=== PATIENT | male | born 1955 | race Caucasian/White ===

== ENCOUNTER → 2016-08-14 | Outpatient (CLI) | payer OTHER ==
[~2016-08-14] MED LIST: COMMODE 3-IN-11 MIS; LORTA5 PO; OMEP20TA39 PO; RANI150T PO; WALKER WHEELS/F1 MIS; Z.0.COMMODE-3:1; Z.0.CPM; Z.0.WALKERFRONT; ZANT150T2 PO; ZOCO40TA PO
--- NOTE | 2016-08-14 08:46 | RADRPT ---
EXAM DATE/TIME: 08/14/2016 08:16 [facility] COMPARISON: No previous studies available for comparison. INDICATIONS : Evaluate for pneumonia, pneumothorax, or communicable disease. Pre op hip surgery. MEDICAL HISTORY : None. SURGICAL HISTORY : None. ENCOUNTER: Initial ACUITY: 1 day PAIN SCORE: 0/10 LOCATION: Bilateral chest FINDINGS: PA and lateral views of the chest demonstrate the lungs to be symmetrically aerated without evidence of mass, infiltrate or effusion. The cardiomediastinal contours are unremarkable. Osseous structure s are intact. Prominent degenerative changes right a.c. joint. CONCLUSION: No acute disease. Joe Heaton MD on August 14, 2016 at 8:44 Board Certified Radiologist. This report was verified electronically.
== END ==
LOC: HRAD 07:45
PROVIDERS: ATTEND Orthopaedic Surgery
DX: Z01.818 Encounter for other preprocedural examination (principal)
CPT/HCPCS: 71020

== ENCOUNTER → 2016-08-26 | Outpatient (CLI) | payer OTHER ==
--- NOTE | 2016-08-26 12:40 | RADRPT ---
EXAM DATE/TIME: 08/26/2016 10:12 [facility] COMPARISON: No previous studies available for comparison. INDICATIONS : Left foot and akle pain and swelling post fall 4 months ago. MEDICAL HISTORY : None. SURGICAL HISTORY : None. ENCOUNTER: Initial ACUITY: 4 - 6 months PAIN SCORE: 8/10 LOCATION: Left foot and ankle FINDINGS: 3 views left foot. Small osteophytes of the third toe proximal interphalangeal joint. Mild osteoarthr itic findings of the great toe MTP joint. Bone alignment within normal limits. No evidence of fractu re. CONCLUSION: No evidence of fracture. Osteoarthritic findings of the third toe PIP joint and great toe MTP joint.. Laz Whitehead MD on August 26, 2016 at 12:35 Board Certified Radiologist. This report was verified electronically.
--- NOTE | 2016-08-26 12:42 | RADRPT ---
EXAM DATE/TIME: 08/26/2016 10:14 [facility] COMPARISON: No previous studies available for comparison. INDICATIONS : Left foot and ankle pain and swelling; post fall 4 months ago. MEDICAL HISTORY : None. SURGICAL HISTORY : None. ENCOUNTER: Initial ACUITY: 4 - 6 months PAIN SCORE: 8/10 LOCATION: Left foot and ankle FINDINGS: 4 views of the left ankle. Ankle mortise intact. Bone alignment within normal limits. No evidence of fracture. CONCLUSION: No evidence of fracture. Laz Whitehead MD on August 26, 2016 at 12:39 Board Certified Radiologist. This report was verified electronically.
== END ==
LOC: HRAD 09:54
PROVIDERS: ATTEND Family Medicine
DX: M25.572 Pain in left ankle and joints of left foot (principal); M25.472 Effusion, left ankle
CPT/HCPCS: 73610; 73630

== ENCOUNTER 2016-08-27 11:15 | Inpatient (IN) | payer OTHER ==
[~2016-08-27] VITALS: Ht 193 cm; Wt 135.2 kg
[2016-08-28] MEDS ORDERED: VANCOMYCIN 1000 MG/NS 250 ML (for <70 kg) IV SCH ×2 (05:30)
[2016-08-28] MEDS ORDERED: ceFAZolin 2 GM PREMIX 50 ML IV SCH (05:30)
[2016-08-28] MEDS ORDERED: POVIDONE IODINE 7.5% SCRUB 118 ML BOTTLE TOPICAL SCH (05:30)
[2016-08-28] MEDS ORDERED: CHLORHEXIDINE GLUCONATE 2 % 1 PACK (2 CLOTHS) TOPICAL PRN (05:45)
[2016-08-28] MEDS ORDERED: METOPROLOL TARTRATE 25 MG TAB PO PRN (05:45)
[2016-08-28] MEDS ORDERED: POVIDONE IODINE 5% (ANTISEPSIS KIT) 4 APPLICATIONS EACH NARE PRN (05:45)
[2016-08-28] MEDS ORDERED: LACTATED RINGER'S 1000 ML IV PRN (05:45)
[2016-08-28] MEDS ORDERED: INSULIN HUMAN REGULAR 1,000 UNITS/10 ML VIAL SQ PRN (05:45)
[2016-08-28] MEDS ORDERED: SODIUM CHLORID 0.9% 500 ML IV PRN (05:45)
[2016-08-28] MEDS ORDERED: RANI150T PO (05:46)
[2016-08-28 05:47] VITALS: BP 155/84; PULSE 68; RESP 20; TEMP 98.6; O2SAT 98
[2016-08-28] MEDS ORDERED: GENTAMICIN SULFATE 80 MG/2 ML VIAL ONE (06:10)
[2016-08-28] MEDS ORDERED: MIDAZOLAM HCL 2 MG/2 ML VIAL ONE (06:36)
[2016-08-28] MEDS ORDERED: FAMOTIDINE 20 MG/2 ML VIAL ONE (06:36)
[2016-08-28] MEDS ORDERED: fentaNYL CITRATE 250 MCG/5 ML AMP ONE ×2 (06:37→09:31)
[2016-08-28] MEDS ORDERED: DEXAMETHASONE SOD PHOS 4 MG/ML VIAL ONE (06:37)
--- NOTE | 2016-08-28 06:54 | HHI.DCPOC ---
Discharge Care Plan Diagnosis: (1) Status post total hip replacement, left (2) Osteoarthritis of left hip Your Health Problems Are: Difficulty with ADL Goals to Promote Your Health * To prevent worsening of your condition and complications * To maintain your health at the optimal level Directions to Meet Your Goals Take your medications as prescribed Follow your dietary instruction Follow activity as directed Keep your appointments as scheduled Take your immunizations and boosters as scheduled If your symptoms worsen call your PCP, if no PCP go to Urgent Care Center or Emergency Room Smoking is Dangerous to Your Health. Avoid second hand smoke Call the 24-hour hour crisis hotline for domestic abuse at Mervin Ruggiero Aug 28, 2016 06:54
--- NOTE | 2016-08-28 06:55 | HHI.FF ---
Face to Face Verification Diagnosis: (1) Status post total hip replacement, left (2) Osteoarthritis of left hip Physical Therapy Gait training, Transfer training, bed to chair Hip: Total hip Left LE Weight Bearing: WB as tolerated Left LE Range of Motion: Active ROM Nursing Nursing: Jessica teaching, Dressing changes Dressing Changes: Daily dressing change I have seen patient Darnell Carlos on 08/28/16. My clinical findings support the need for the requested home health care services because: Limited ability to care for self High risk of falls I certify that my clinical findings support that this patient is homebound because: Post-op weakness Unsteady gait/balance Mervin Ruggiero Aug 28, 2016 06:54
[2016-08-28] MEDS ORDERED: COMMODE 3-IN-11 MIS (06:56)
[2016-08-28] MEDS ORDERED: WALKER WHEELS/F1 MIS (06:56)
[2016-08-28] MEDS ORDERED: DEXAMETHASONE SOD PHOS 20 MG/5 ML VIAL IV SCH (07:00)
[2016-08-28] MEDS ORDERED: SODIUM CHLORIDE 0.9% IV SCH ×2 (07:00→09:00)
[2016-08-28] MEDS ORDERED: TRANEXAMIC ACID IV SCH ×2 (07:00→09:00)
[2016-08-28] MEDS ORDERED: EXPAREL PERI-ARTICULAR INJECTION (TOTAL VOL. 60 ML) P-ARTICULR SCH ×2 (07:00)
[2016-08-28] MEDS: SODIUM CHLOR 0.9% 1000 ML INJ 1,000 ML IV SCH ×2 (08:54→18:04)
[2016-08-28] MEDS ORDERED: MAGNESIUM HYDROXIDE SUSP 30 ML CUP PO PRN (09:00)
[2016-08-28] MEDS ORDERED: ZOLPIDEM TARTRATE 5 MG TAB PO PRN (09:00)
[2016-08-28] MEDS ORDERED: BISACODYL 10 MG SUPP RECTAL PRN (09:00)
[2016-08-28] MEDS ORDERED: diphenhydrAMINE HCL 50 MG/ML VIAL IV PRN (09:00)
[2016-08-28] MEDS ORDERED: NALOXONE HCL 0.4 MG/ML AMP IV PRN (09:00)
[2016-08-28] MEDS: SODIUM CHLORIDE 0.9% FLUSH 5 ML FLUSH IVF SCH ×2 (09:00→20:13)
[2016-08-28] MEDS ORDERED: SODIUM CHLORIDE 0.9% FLUSH 5 ML FLUSH IVF PRN (09:00)
[2016-08-28] MEDS ORDERED: MORPHINE SULFATE 4 MG/ML INJ IV PUSH PRN (09:00)
[2016-08-28] MEDS ORDERED: Post-op Orders (for Pharmacy) MISC XX ONE (09:00)
[2016-08-28] MEDS ORDERED: ALUMINUM/MAGNESIUM/SIMETH 30 ML CUP PO PRN (09:00)
[2016-08-28] MEDS ORDERED: ONDANSETRON HCL 4 MG/2 ML VIAL IVP PRN (09:00)
--- NOTE | 2016-08-28 09:01 | PD.OP ---
cc: Sang Berg MD Operative Report Date of Surgery: Aug 28, 2016 Preoperative Diagnosis: Left hip severe osteoarthritis Postoperative Diagnosis: Same Procedure: Left total hip arthroplasty Anesthesia: Gen. Surgeon: Sang Berg Cellular Equipment Installer(s): GLENNY Foster The surgical procedure was assisted by my Advanced Registered Nurse Practitioner. My [employer] presence was necessary throughout this case for the manipulation and positioning of the surgical extremity. My [employer] was assisting me throughout the duration of this procedure. The skill set of an Advance Registered Nurse Practitioner was medically necessary to complete this procedure. During the surgical case, the surgical coordinator was working at the back table and the Advance Registered Nurse Practitioner was directly assisting me. Operation and Findings: IMPLANT DESCRIPTION: 1. [place] Gription Cup, acetabular size 58. 2. [place] AltrX polyethylene, neutral. 4. [place] femoral stem size 16, no collar, high offset. 5. Femoral head/neck ceramic, 36, +12. ESTIMATED BLOOD LOSS: 400 cc. JUSTIFICATION FOR PROCEDURE: The patient has end-stage osteoarthritis to the hip. There is an attached conservative measures pathway form in the chart that describes the nonoperative measures that were undertaken prior to consideration of surgical management. The patient understood the risks and benefits of surgical management. See my office notes for further details. PROCEDURE: The patient was brought back to the operative theatre. Adequate anesthesia was obtained. The patient received intravenous vancomycin and Ancef. The patient was carefully placed on the operative table. The lower extremity was prepped and draped in the usual sterile fashion. Fluoroscopic images were obtained. We made a standard anterior incision over the hip. We dissected through the TFL fascia, exposing the anterior capsule. Arthrotomy was performed in a T-shaped fashion. The capsule was tagged with a #2 FiberWire. End-stage arthritis was identified. Osteotomy was performed through the femoral neck exposing the acetabulum. Remnants of the labrum were resected and osteophytes were removed. We sequentially reamed the acetabulum. We trialed the hip and placed the final cup into position. This was done under fluoroscopic guidance to obtain the appropriate inclination and anteversion. A manhole cover was placed into the acetabular component. We then placed the final polyethylene into position and confirmed that it was well seated. Capsular attachments on the calcar and the inner aspect of the greater trochanter were resected. On the proximal aspect of the femur we used a rongeur , box osteotome, canal finder, sequential broaches and lateralizing rasp. We calcar planed the proximal femur. Then thoroughly irrigated the wound. We trialed the hip with the appropriate size stem. We placed the final stem in to position and trialed again. The hip was stable while it was externally rotated 70 degrees when the leg was lowered to the floor. We trialed several different neck lengths. Ultimately, the +12 gave the best stability. The +8.5 was unstable with the hip externally rotated and brought down to 30. Therefore, we went with the +12. This did seem to increase the leg length on the left side compared to the right side, per intraoperative fluoroscopy. However, the right side does have severe osteoarthritis with shortening. The tension with the +12 failed very appropriate and anatomic. The final head was applied, and final fluoroscopic images were obtained. The wound was thoroughly irrigated again. Interarticular injection of liposomal bupivacaine was given. The capsule was closed with #2 FiberWire and #1 Vicryl. The deep fascia was closed with a #2 Stratafix, followed by 2-0 Vicryl in the skin and merced. Postop plan is to weight-bear as tolerated. DVT prophylaxis will be performed with SCDs, DEBORA nolasco, early mobilization, and Lovenox followed by aspirin. Sang Berg MD Aug 28, 2016 09:01
[2016-08-28] MEDS ORDERED: DO NOT ADM ANY ANTICOAGULANT DRUGS PRN (09:30)
--- NOTE | 2016-08-28 09:39 | RADRPT ---
EXAM DATE/TIME: 08/28/2016 07:27 [facility] COMPARISON: FLUOROSCOPY PORTABLE UP TO 1HR, August 28, 2016, 0:00. INDICATIONS : Left total hip replacement. MEDICAL HISTORY : None. SURGICAL HISTORY : None. ENCOUNTER: Initial ACUITY: 1 day PAIN SCORE: Non-responsive. LOCATION: Left Hip FINDINGS: The patient is post left hip arthroplasty. Orthopedic hardware appears in excellent position. No comp lication is identified. CONCLUSION: 1. Orthopedic hardware in excellent position. Mervin Barnett MD on August 28, 2016 at 9:37 Board Certified Radiologist. This report was verified electronically.
[2016-08-28] MEDS ORDERED: *ONDANSETRON 4 MG VIAL PERIprocedural Use ONLY ONE (10:16)
--- NOTE | 2016-08-28 10:22 | RADRPT ---
EXAM DATE/TIME: 08/28/2016 09:37 [facility] COMPARISON: No previous studies available for comparison. INDICATIONS : Post op left hip surgery. MEDICAL HISTORY : None. SURGICAL HISTORY : None. ENCOUNTER: Initial ACUITY: 1 day PAIN SCORE: 5/10 LOCATION: Left hip and pelvis FINDINGS: The patient is status post a total hip arthroplasty with a bipolar prosthesis. Prosthesis is well-sea stan. Alignment is anatomic. A fracture is not appreciated. CONCLUSION: Anatomic alignment. Paul Barnett MD FACR Board Certified Radiologist. This report was verified electronically.
[2016-08-28] MEDS: ACETAMINOPHEN/HYDROcodone 325 MG/5 MG TAB PO PRN ×4 (11:37→23:39)
[2016-08-28 12:00] VITALS: BP 158/89; PULSE 76; RESP 18; TEMP 95.5; O2SAT 93
[2016-08-28] MEDS ORDERED: PROPOFOL 200 MG/20 ML AMP IV ONE (12:00)
[2016-08-28] MEDS ORDERED: NEOSTIGMINE 3 MG/3 ML SYR IV ONE (12:00)
[2016-08-28] MEDS ORDERED: LACTATED RINGER'S 1000 ML INJ 3,000 ML IV ONE (12:00)
[2016-08-28] MEDS ORDERED: ONDANSETRON HCL 4 MG/2 ML VIAL IV PUSH ONE (12:00)
[2016-08-28 12:07] VITALS: O2SAT 94
--- NOTE | 2016-08-28 15:44 | MB ---
cc: JANELLE ANTHONY MD DATE OF CONSULTATION 08/28/16 Consult note for medical management. DATE OF 1955 DATE OF ADMISSION 08/28/2016 REASON FOR CONSULTATION Medical management. HISTORY OF PRESENT ILLNESS This is a pleasant 61-year-old white male who had been in his usual state of health except for the osteoarthritis and the pain in his left hip. The patient received outpatient therapy and decided to have a left total hip arthroplasty. The patient is currently in the private room, postop day one. He is working with physical therapy and is currently sitting on the side of the bed. The patient is alert, oriented and cooperative. PAST MEDICAL HISTORY Medical history includes osteoarthritis with ___ shoulder pain and shoulder injury; old fracture to the clavicle. Hyperlipidemia, arthritis, right middle finger injury on his right hand. GERD. The patient is not a diabetic. PAST SURGICAL HISTORY T and A. Left and right knee surgery which included cartilage removal and left total knee. ALLERGIES No known. MEDICATIONS Medications reconciled: 1. Zantac 150 daily. SOCIAL HISTORY The patient is single, lives alone. Denies any tobacco, alcohol or illicit drugs. States he quit all three 14 years ago. REVIEW OF SYSTEMS A 10 point review was obtained, positives noted which includes his bowel regimen, his pain control. He is status post left total hip replacement. He is afebrile. Generalized debility otherwise unremarkable system. PHYSICAL EXAMINATION VITAL SIGNS: Temperature is 95.5, pulse 76, respirations 18, blood pressure 158/59, systolic pressure has run in the 150s with a high of 161 since admission. O2 sat 94, currently on room air. He has been on nasal cannula at 3 liters with O2 sat running 96. GENERAL: Well-nourished, mildly obese white male, looks to be his stated age. He is alert, oriented and a good historian. HEENT: Atraumatic, normocephalic. KELLY. Neck is supple. No scleral icterus. CARDIOVASCULAR: S1-S2, regular rate and rhythm. No murmurs, rubs gallops. LUNGS: Sounds are essentially clear anteriorly and posteriorly with no wheezes, rales or rhonchi. ABDOMEN: Round, soft, nontender, nondistended, soft. Bowel sounds. MUSCULOSKELETAL: Moves his extremities with purpose. He does have some mild guarding to the left hip. NEUROLOGICALLY: He is alert, oriented ,good historian. SKIN: [place], warm and dry. DIAGNOSTIC DATA No diagnostic date noted in the computer. ASSESSMENT/PLAN Severe osteoarthritis status post left total hip replacement, hyperlipidemia, left shoulder pain, acute on chronic, arthritis, GERD. PLAN Our plan is to monitor any of his medical management. Will recheck his labs in the morning. Pain management and his postop care will be per Dr. Berg, orthopedics. The patient can use a cold pack on his wound p.r.n. He will be working with physical therapy. Will monitor his nutritional status, his bowel regimen and any other needs for his medical management. The patient can be out of bed with assistance. SCDs bilateral. Lovenox for DVT prophylaxis. Pepcid for his GERD. Thank you very much for this consultation. Dictated by: GLENNY Jain MD CORIN June/ROMULO /2:57 PM /3:21 PM
--- NOTE | 2016-08-28 15:56 | EKG ---
Date Performed: 08/28/2016 Time Performed: 06:17:20 PTAGE: 61 years EKG: Sinus rhythm POSSIBLE LATERAL MYOCARDIAL INFARCTION , OF INDETERMINATE AGE ABNORMAL ECG PREVIOUS TRACING : 06/01/2015 14.42 Compared to prior tracing no significant change DOCTOR: Rm Ott Interpretating Date/Time 08/28/2016 15:54:24
[2016-08-28 16:00] VITALS: BP 151/85; PULSE 63; RESP 18; TEMP 96.3; O2SAT 94
[2016-08-28 20:00] VITALS: BP 157/82; PULSE 80; RESP 20; TEMP 96.1; O2SAT 99
[2016-08-28] MEDS: FAMOTIDINE 20 MG TAB PO SCH (20:13)
[2016-08-28 20:21] VITALS: O2SAT 95
[2016-08-29] VITALS: BP 140/70; PULSE 78; RESP 24; TEMP 98.1; O2SAT 98
[2016-08-29] MEDS: ACETAMINOPHEN/HYDROcodone 325 MG/5 MG TAB PO PRN ×4 (03:39→16:08)
[2016-08-29 04:00] VITALS: BP 147/72; PULSE 81; RESP 20; TEMP 97.1; O2SAT 98
[2016-08-29] MEDS: SODIUM CHLOR 0.9% 1000 ML INJ 1,000 ML IV SCH ×2 (04:43→12:06)
[2016-08-29 06:17] LABS: HEMATOCRIT 37.5 % (39.0-51.0); MEAN CELL VOLUME 92.2 FL (80.0-100.0); MEAN CORPUSCULAR HEMOGLOBIN 30.8 PG (27.0-34.0); MEAN CORPUSCULAR HGB CONC 33.4 % (32.0-36.0); PLATELET COUNT 147 TH/MM3 (150-450); RED BLOOD COUNT 4.07 MIL/MM3 (4.50-5.90); REVIEW FLAG FINAL; WHITE BLOOD COUNT 10.1 TH/MM3 (4.0-11.0)
[2016-08-29 06:52] LABS: BICARBONATE 23.9 MEQ/L (21.0-32.0)
[2016-08-29 06:55] LABS: POTASSIUM 4.3 MEQ/L (3.5-5.1)
[2016-08-29] MEDS ORDERED: DEXAMETHASONE SOD PHOS 20 MG/5 ML VIAL IV ONE (07:45)
[2016-08-29 08:00] VITALS: BP 143/78; PULSE 75; RESP 18; TEMP 96.6; O2SAT 98
[2016-08-29] MEDS ORDERED: ENOXAPARIN SODIUM 40 MG/0.4 ML SYRINGE SQ SCH (08:00)
[2016-08-29] MEDS: FAMOTIDINE 20 MG TAB PO SCH (08:03)
[2016-08-29] MEDS: SODIUM CHLORIDE 0.9% FLUSH 5 ML FLUSH IVF SCH (08:05)
--- NOTE | 2016-08-29 11:36 | HHI.PR ---
Subjective Remarks Resting in bed Alert oriented Afebrile Up in chair and able to ambulate Objective Objective Results - Vital Signs Date Time Temp Pulse Resp B/P Pulse Ox O2 Delivery O2 Flow Rate FiO2 08/29/16 08:00 96.6 75 18 143/78 98 08/29/16 07:55 Room Air 08/29/16 04:00 97.1 81 20 147/72 98 08/29/16 00:00 98.1 78 24 140/70 98 08/28/16 20:21 95 21 08/28/16 20:00 96.1 80 20 157/82 99 08/28/16 20:00 99 Room Air 08/28/16 16:00 96.3 63 18 151/85 94 08/28/16 12:07 94 21 08/28/16 12:00 95.5 76 18 158/89 93 I/O 08/28/16 08/28/16 08/28/16 08/29/16 08/29/16 08/29/16 07:00 15:00 23:00 07:00 15:00 23:00 Intake Total 3454 ml 1257 ml 1008 ml Output Total 500 ml 650 ml Balance 2954 ml 607 ml 1008 ml Intake Oral 780 ml 240 ml IV Total 954 ml 477 ml 768 ml Other 2500 ml Output Urine Total 650 ml Estimated Blood Loss 500 ml # Voids 3 1 # Bowel Movements 0 0 Result Diagram: 08/29/16 0550 08/29/16 0550 ROS General: Fatigue (I'll), Weakness, Other (10 point ROS done, positives noted) GI: BM (on December bowel regimen) Physical Exam Physical Exam PHYSICAL EXAMINATION GENERAL: This is a mildly obese male who appears to be in no acute distress. He is alert and awake, talkative HEAD: Normocephalic, atraumatic OROPHARYNGEAL: Oropharynx clear NECK: Supple. Trachea midline without deviation. CARDIAC: Regular rhythm, regular rate, S1 and S2 are heard. LUNGS: Clear to auscultation bilaterally. No wheezes or rhonchi, volumes adequate ABDOMEN: Soft, nontender, round, bowel sounds present, no nausea vomiting EXTREMITIES: Left hip surgical incision and dressing clean dry and intact. No edema. Pulses present NEUROLOGICAL: Patient mood and affect appropriate. No focal deficit SKIN:Warm and moist Objective Remarks I'm feeling fairly good. Hope to go home soon A/P Assessment and Plan ASSESSMENT/PLAN Severe osteoarthritis status post left total hip replacement, hyperlipidemia, left shoulder pain, acute on chronic, Hyperglycemia mild Anemia mild GERD. Plan: Vital signs reviewed, normal trends for now afebrile Labs reviewed, hemoglobin 12.5 stable, she is status post total left hip arthroplasty Mild hyperglycemia blood sugar 137, patient is not a known diabetic but encouraged to monitor and recheck with his PCP after discharge Acute on chronic pain management controlled with medications Severe osteoarthritis patient is status post left total hip arthroplasty Pain management per orthopedic team Postop care per Ortho, encouraged activity, physical therapy, up in chair Discharge planning in process, soon, day or 2 SCDs bilateral. Lovenox for DVT prophylaxis. PUD prophylaxis, Lashell Romero Aug 29, 2016 11:36
--- NOTE | 2016-08-29 11:47 | PD.ORT.PN ---
Subjective Post Op Day #: 1 Subjective Remarks The patient is resting comfortably in bed with mild to moderate left hip pain. Patient able to ambulate the full length of the arriola on the floor he is on. Patient is voiding. Objective Vitals Vital Signs Date Time Temp Pulse Resp B/P Pulse Ox O2 Delivery O2 Flow Rate FiO2 08/29/16 08:00 96.6 75 18 143/78 98 08/29/16 07:55 Room Air 08/29/16 04:00 97.1 81 20 147/72 98 08/29/16 00:00 98.1 78 24 140/70 98 08/28/16 20:21 95 21 08/28/16 20:00 96.1 80 20 157/82 99 08/28/16 20:00 99 Room Air 08/28/16 16:00 96.3 63 18 151/85 94 08/28/16 12:07 94 21 08/28/16 12:00 95.5 76 18 158/89 93 I/O 08/28/16 08/28/16 08/28/16 08/29/16 08/29/16 08/29/16 07:00 15:00 23:00 07:00 15:00 23:00 Intake Total 3454 ml 1257 ml 1008 ml Output Total 500 ml 650 ml Balance 2954 ml 607 ml 1008 ml Intake Oral 780 ml 240 ml IV Total 954 ml 477 ml 768 ml Other 2500 ml Output Urine Total 650 ml Estimated Blood Loss 500 ml # Voids 3 1 # Bowel Movements 0 0 Result Diagram: 08/29/16 0550 08/29/16 0550 Procedures Left CAMERON Objective Remarks Dressings changed with scant serosanguineous drainage. Incision is well approximated with surgical clips intact. No redness or s/s of infection. EHL/ TA/G intact. 2+ pedal pulse. Calf is soft and nontender. Minimal swelling. + SILT. Assessment & Plan Ortho Post Op Day #: 1 Problem List: Assessment and Plan POD #1: Left CAMERON 1. WBAT LLE 2. Lovenox for DVT prophylaxis 3. Ice to the left hip PRN 4. Stable for discharge home with home health today. Mervin Ruggiero Aug 29, 2016 11:47
[2016-08-29 12:00] VITALS: BP 145/73; PULSE 87; RESP 18; TEMP 98.7; O2SAT 96
[2016-08-29 12:12] VITALS: O2SAT 98
[2016-08-29] MEDS ORDERED: MULTIVITAMINS/MINERALS THERAPEUTIC TAB PO SCH (21:00)
[2016-08-29] MEDS ORDERED: DOCUSATE SODIUM 100 MG CAP PO SCH (21:00)
--- NOTE | 2016-09-02 22:18 | HHI.DS ---
Discharge Summary Admission Date Aug 28, 2016 at 05:08 Discharge Date: Aug 29, 2016 Admitting Diagnosis OA of left hip Status post total hip replacement, left Diagnosis: (1) Status post total hip replacement, left Diagnosis: Principal (2) Osteoarthritis of left hip Diagnosis: Principal Procedures Left CAMERON Brief History This is a 61 year old male patient with severe OA of the left hip CBC/BMP: 08/29/16 0550 08/29/16 0550 PE at Discharge Dressings changed with scant serosanguineous drainage. Incision is well approximated with surgical clips intact. No redness or s/s of infection. EHL/ TA/G intact. 2+ pedal pulse. Calf is soft and nontender. Minimal swelling. + SILT. Hospital Course The patient was admitted to the hospital for severe OA of the left hip to have a left CAMERON. The patient tolerated the procedure well with no complications. The patient is WBAT. The patient was placed on Lovenox followed by ASA post op for DVT prophylaxis. The patient is on a regular diet. The patient will f/u with Dr. Berg in 1-2 weeks. The patient is discharged to home health. Pt Condition on Discharge: Stable Discharge Disposition: Disch w/ Home Health Serv Discharge Instructions Diet Instructions: As Tolerated, No Restrictions Activities You Can Perform: Weight Bearing as Jose Activities to Avoid: Strenuous Activity Follow up Referrals: Orthopedics with Sang Berg MD New Medications: Commode 3-in-1 (Commode 3-in-1) 1 Mis Mis 1 EA .ROUTE DIRECTED #1 Ref 0 EA Walker with Front Wheels (Walker with Front Wheels) 1 Mis Mis 1 EA .ROUTE DIRECTED #1 Ref 0 EA Continued Medications: Ranitidine (Ranitidine) 150 Mg Tab 150 MG PO DAILY Heartburn Management Ref 0 TAB Mervin Ruggiero Sep 02, 2016 22:18
== END 2016-08-29 16:24 | disposition home or self-care (01) | DRG 470 ==
LOC: HSDI 08-28 05:08 → N06A 08-28 10:48
PROVIDERS: ADMIT Orthopaedic Surgery; ATTEND Orthopaedic Surgery
PROC: 0SRB04A Replacement of Left Hip Joint with Ceramic on Polyethylene Synthetic Substitute, Uncemented, Open Approach (ICD-10-PCS; principal; 2016-08-28 06:55)
DX: M16.12 Unilateral primary osteoarthritis, left hip (principal); E66.9 Obesity, unspecified; Z68.36 Body mass index [BMI] 36.0-36.9, adult; E78.5 Hyperlipidemia, unspecified; K21.9 Gastro-esophageal reflux disease without esophagitis; G89.29 Other chronic pain; M25.512 Pain in left shoulder; Z87.891 Personal history of nicotine dependence; R73.9 Hyperglycemia, unspecified
CPT/HCPCS: 73501; 73502; 73610; 73630; 76000; 80048; 85027; 86850; 86900; 86901; 93005; 93971; 94150; 99284; C1776; C9290; J0690; J1100; J1580; J1650; J2250; J2405; J2710; J3010; J3370; J7030; J7050; J7120

== ENCOUNTER 2016-08-27 11:21 | Emergency (ER) | payer OTHER ==
[~2016-08-27] VITALS: Ht 193 cm; Wt 130.0 kg
[~2016-08-27 11:21] MED LIST changes: -COMMODE 3-IN-11 MIS; -RANI150T PO; -WALKER WHEELS/F1 MIS
[2016-08-27 11:23] VITALS: BP 136/73; PULSE 67; RESP 15; TEMP 98; O2SAT 99
--- NOTE | 2016-08-27 12:09 | PD ---
HPI Chief Complaint: Edema Time Seen by Provider: 11:31 Travel History International Travel<30 days: No Contact w/Intl Traveler<30days: No Traveled to known affect area: No History of Present Illness HPI 7-year-old man referred from Dr. Berg's office for evaluation of left leg pain for rule out DVT. He is a order with him for an ultrasound. Reportedly his had some swelling over the past several days mostly in the left ankle, and pain for the past several days as well. He is due to get his hip replacement bedside tomorrow. He was sent by Dr. Berg to rule out DVT. No history DVT. No other complaints. States he had an x-ray done yesterday. History Past Medical History Medical History: Denies Significant Hx Social History Alcohol Use: Yes Tobacco Use: Yes Allergies-Medications (Allergen,Severity, Reaction): Coded Allergies: No Known Allergies (Unverified , 08/27/16) Reported Meds & Prescriptions Reported Meds & Active Scripts Active Review of Systems Except as stated in HPI: all other systems reviewed are Neg Physical Exam Narrative GENERAL: Well-appearing 7-year-old man, no acute distress. SKIN: Warm and dry. CARDIOVASCULAR: Warm and well perfused. RESPIRATORY: Normal rate and effort. MUSCULOSKELETAL: Minimal swelling around the left ankle. Good pulses. Warm and well perfused. No calf tenderness or calf pain. NEUROLOGICAL: Awake and alert. No gross deficits. Data Data Last Documented VS Vital Signs Date Time Temp Pulse Resp B/P Pulse Ox O2 Delivery O2 Flow Rate FiO2 08/27/16 11:23 98.0 67 15 136/73 99 Orders Us Leg Venous Doppler (08/27/16 ) [facility] Medical Decision Making Medical Screen Exam Complete: Yes Emergency Medical Condition: Yes Interpretation(s) Doppler the left lower extremity is negative. Differential Diagnosis DVT, edema, arthritis, other Narrative Course Medical decision-making 7-year-old man with left ankle swelling since rule out DVT prior to surgery tomorrow. We'll check ultrasound, doubt DVT. Outpatient follow-up. Diagnosis Primary Impression: Left ankle swelling Additional Instructions: Follow-up with Dr. Berg as planned. Med/Other Pt SpecificInfo: No Change to Meds Disposition: 01 DISCHARGE HOME Condition: Stable Manohar Garcia MD Aug 27, 2016 12:09
--- NOTE | 2016-08-27 12:25 | RADRPT ---
EXAM DATE/TIME: 08/27/2016 12:08 [facility] COMPARISON: No previous studies available for comparison. INDICATIONS : Left leg edema. MEDICAL HISTORY : Gastroesophageal reflux disease. Arthritis. ETOH abuse. SURGICAL HISTORY : Tonsillectomy. Bilateral knee repair. ENCOUNTER: Initial ACUITY: 3 days PAIN SCORE: 2/10 LOCATION: Left leg. TECHNIQUE: Venous ultrasound of the leg was performed from the inguinal ligament to the proximal calf. Real-kimmie e, color Doppler and spectral tracing, compression and augmentation techniques were used. FINDINGS: There is normal compressibility of the deep venous system from the inguinal region to the proximal ca lf. No echogenic clot is seen in the lumen of the common femoral, femoral, popliteal, and posterior tibial veins. There is a normal response of the venous system to proximal and distal augmentation an d respiration. CONCLUSION: The study is negative for deep venous thrombosis left lower extremity. Sundar Lam MD on August 27, 2016 at 12:22 Board Certified Radiologist. This report was verified electronically.
[2016-08-27 12:43] VITALS: BP 149/72
[2016-08-28] MEDS ORDERED: RANI150T PO (05:46)
[2016-08-28] MEDS ORDERED: COMMODE 3-IN-11 MIS (06:56)
[2016-08-28] MEDS ORDERED: WALKER WHEELS/F1 MIS (06:56)
== END 2016-08-27 12:43 | disposition home or self-care (01) ==
LOC: NEPD 11:21
DX: R22.42 Localized swelling, mass and lump, left lower limb (principal); M79.605 Pain in left leg; Z72.0 Tobacco use
CPT/HCPCS: 93971; 99284

== ENCOUNTER 2016-12-24 15:17 | Emergency (ER) | payer OTHER ==
[~2016-12-24] VITALS: Ht 190.5 cm; Wt 110.0 kg
[~2016-12-24 15:17] MED LIST changes: +COMMODE 3-IN-11 MIS; -LORTA5 PO; -OMEP20TA39 PO; +RANI150T PO; +WALKER WHEELS/F1 MIS; -Z.0.COMMODE-3:1; -Z.0.CPM; -Z.0.WALKERFRONT; -ZANT150T2 PO; -ZOCO40TA PO
[2016-12-24 15:20] VITALS: BP 169/80; PULSE 96; RESP 16; TEMP 98.6; O2SAT 95
[2016-12-24] MEDS ORDERED: TETANUS/DIPHTHERIA TOXOID ADULT 0.5 ML VIAL IM ONE (15:30)
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
--- NOTE | 2016-12-24 15:51 | RADRPT ---
EXAM DATE/TIME: 12/24/2016 15:39 [facility] COMPARISON: No previous studies available for comparison. INDICATIONS : Right foot pain. Patient stood on a nail. MEDICAL HISTORY : None. SURGICAL HISTORY : None. ENCOUNTER: Initial ACUITY: 1 day PAIN SCORE: 7/10 LOCATION: Right foot. FINDINGS: Three view examination of the right foot demonstrates no dislocation, or fracture. The tarsal bones appear intact. The interphalangeal and metatarsophalangeal joints are intact. The calcaneus is int act. Bony mineralization is normal. There is soft tissue swelling and apparent skin disruption in th e plantar forefoot. There is also soft tissue swelling in the dorsal proximal to mid foot region. No radiopaque foreign bodies. CONCLUSION: 1. Soft tissue swelling along the plantar forefoot and dorsal proximal to mid foot region. No radiopa que foreign bodies. 2. No acute fracture or dislocation. Russel Hale MD on December 24, 2016 at 15:47 Board Certified Radiologist. This report was verified electronically.
[2016-12-24] MEDS ORDERED: HYDR-3533 PO (15:59)
[2016-12-24] MEDS ORDERED: CIPR-9 PO (15:59)
[2016-12-24] MEDS ORDERED: IBUP-232 PO (15:59)
== END 2016-12-24 16:25 | disposition home or self-care (01) ==
LOC: NEPK 15:17
DX: S91.331A Puncture wound without foreign body, right foot, initial encounter (principal); W26.8XXA Contact with other sharp object(s), not elsewhere classified, initial encounter; Z23 Encounter for immunization
CPT/HCPCS: 73630; 90471; 90714

== ENCOUNTER 2017-01-22 17:46 | Emergency (ER) | payer OTHER ==
[~2017-01-22] VITALS: Ht 193 cm; Wt 136.0 kg
[~2017-01-22 17:46] MED LIST changes: +CIPR-9 PO; +HYDR-3533 PO; +IBUP-232 PO
[2017-01-22 17:47] VITALS: BP 167/106; PULSE 104; RESP 20; TEMP 98.5; O2SAT 94
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
[2017-01-22] MEDS ORDERED: KETOROLAC TROMETHAMINE 60 MG/2 ML (IM) VIAL IM ONE (18:30)
--- NOTE | 2017-01-22 18:52 | RADRPT ---
EXAM DATE/TIME: 01/22/2017 18:39 [facility] COMPARISON: No previous studies available for comparison. INDICATIONS : Patient complains of pain in lateral aspect of right foot and in 5th digit. Patient stepped on nail w ith right foot 1 month ago but states they thought it had healed with no issues. MEDICAL HISTORY : None. SURGICAL HISTORY : None. ENCOUNTER: Initial ACUITY: 3 days PAIN SCORE: 10/10 LOCATION: Right Foot FINDINGS: A limited to view examination of the right foot demonstrates no soft tissue swelling, dislocation, or fracture. The calcaneus is intact. Bony mineralization is normal. CONCLUSION: Negative limited 2 view study. Darnell Tijerina MD on January 22, 2017 at 18:50 Board Certified Radiologist. This report was verified electronically.
--- NOTE | 2017-01-22 18:53 | RADRPT ---
EXAM DATE/TIME: 01/22/2017 18:43 [facility] COMPARISON: No previous studies available for comparison. INDICATIONS : Patient has pain near calcaneus on left foot. Patient states they cannot put weight on left foot. No known injury. MEDICAL HISTORY : None. SURGICAL HISTORY : None. ENCOUNTER: Initial ACUITY: 1 day PAIN SCORE: 10/10 LOCATION: Left Foot FINDINGS: A limited two-view examination of the left foot demonstrates no soft tissue swelling, dislocation, or fracture. The calcaneus is intact. Bony mineralization is normal. CONCLUSION: Negative limited 2 view study. The calcaneus is unremarkable. Darnell Tijerina MD on January 22, 2017 at 18:51 Board Certified Radiologist. This report was verified electronically.
[2017-01-22 20:15] VITALS: RESP 16
[2017-01-22] MEDS ORDERED: CLINDAMYCIN 150 MG CAP PO ONE (20:15)
[2017-01-22] MEDS ORDERED: IBUP-232 PO (20:15)
[2017-01-22] MEDS ORDERED: HYDR-3533 PO (20:15)
[2017-01-22] MEDS ORDERED: CLIN300C5 PO (20:15)
[2017-01-22 20:52] VITALS: BP 172/87
== END 2017-01-22 21:01 | disposition home or self-care (01) ==
LOC: NEPD 17:46
DX: L03.115 Cellulitis of right lower limb (principal); M19.90 Unspecified osteoarthritis, unspecified site; M79.672 Pain in left foot; K21.9 Gastro-esophageal reflux disease without esophagitis; Z72.0 Tobacco use
CPT/HCPCS: 73620; 96372; 99284; J1885